=== PATIENT | male | born 1995 | race Two or more races ===

== ENCOUNTER 2021-09-06 11:59 | Emergency (ER) | payer MEDICAID, OTHER ==
[~2021-09-06] VITALS: Ht 177.8 cm; Wt 113.4 kg
[2021-09-06 12:40] VITALS: BP 120/76
== END 2021-09-06 15:15 | disposition home or self-care (01) ==
LOC: ER 11:59
DX: M25.562 Pain in left knee (principal); X50.1XXA Overexertion from prolonged static or awkward postures, initial encounter; Y93.89 Activity, other specified; Y92.9 Unspecified place or not applicable; Y99.8 Other external cause status
CPT/HCPCS: 73562